=== PATIENT | female | born 1965 | race Asian ===

== ENCOUNTER 2016-10-21 01:26 | Observation (INO) | payer SELFPAY ==
[~2016-10-21] VITALS: Ht 167.6 cm; Wt 91.4 kg
[2016-10-21] MEDS ORDERED: OPTIRAY 320 IV PRN (02:00)
[2016-10-21 02:09] LABS: BASO % 0.2 %; BASO ABS # 0.02 K/uL (0-0.2); COMPLETE YES; EOS % 1.7 %; IG% 0.2 %; LYMPH % 29.9 %; MEAN CELL VOLUME 82.6 fL (80-100); MEAN CORPUSCULAR HEMOGLOBIN 28.8 pg (25-34); MEAN CORPUSCULAR HGB CONC 34.9 g/dl (32-36); MEAN PLATELET VOLUME 11.7 fL (7.4-10.4); MONO % 8.2 %; NEUT % 59.8 %; PLATELET COUNT 266 K/uL (130-400); RED BLOOD COUNT 5.45 M/uL (4.2-5.4); WHITE BLOOD COUNT 9.02 K/uL (4.8-10.8)
[2016-10-21 02:18] LABS: ISTAT CREATININE 0.6 mg/dl (0.6-1.3); ISTAT HEMOGLOBIN 16.3 g/dl (12.0-16.0); ISTAT IONIZED CALCIUM 1.16 mmol/l (1.12-1.32)
[2016-10-21 02:30] LABS: ALT/SGPT 25 U/L (12-78); AST/SGOT 9 U/L (15-37); BLOOD UREA NITROGEN 9 mg/dl (7-18); BUN/CREATININE RATIO 13.7 (10-20); CALCIUM 8.8 mg/dl (8.5-10.1); CARBON DIOXIDE 29 mmol/L (21-32); CHLORIDE 106 mmol/L (98-107); CREATININE 0.67 mg/dl (0.60-1.20); GLUCOSE 106 mg/dl (70-99); POTASSIUM 3.6 mmol/L (3.5-5.1); SODIUM 144 mmol/L (136-145)
[2016-10-21 02:34] LABS: ALKALINE PHOSPHATASE 123 U/L (45-117)
[2016-10-21] MEDS ORDERED: CALC200T PO (02:48)
[2016-10-21] MEDS ORDERED: MULT-506 PO (02:48)
[2016-10-21] MEDS ORDERED: ALBUT/IPRATROP 3MG/0.5MG NEB 3 ML VIAL INH STA ×3 (02:59→04:30)
[2016-10-21] MEDS ORDERED: METHYLPREDNISOLONE 125 MG VIAL IV STA (02:59)
[2016-10-21] MEDS: ALBUTEROL HFA 8 GM INHALER INH STA ×2 (03:34→03:50)
--- NOTE | 2016-10-21 05:35 | EMERGENCY ROOM VISIT NOTE ---
History First contact with patient: 01:37 Chief Complaint: SHORTNESS OF BREATH Stated Complaint: SHORTNESS OF BREATH,INDIGESTION History of Present Illness The patient is a 51 year old female who presents to the Emergency Room with complaints of extreme shortness of breath for the past 3 hours of sudden onset that is worse than any type of activity and nothing makes it better. Patient flew from [place] 2 weeks ago. Patient states she's healthy with no active medical problems she does not smoke. No leg pain or swelling. No family history of blood clots or heart disease. No prior blood clots or heart disease per herself. Patient states she had a cold last week that resolved over week ago. Patient denies chest pain, abdominal pain, vomiting, diarrhea, fever, chills. Review of Systems See HPI for pertinent positives & negatives. A total of 10 systems reviewed and were otherwise negative. Past Medical/Surgical History C section Social History Smoking Status: Never Smoker Smokeless Tobacco Use: No Alcohol Use: none Drug Use: none Housing Status: lives with family Current/Historical Medications Scheduled Calcium Carbonate-Vitamin D (Oscal 500/200 D-3), 1 TAB PO DAILY Multivitamin (Multivitamin), 1 TAB PO DAILY Allergies Coded Allergies: No Known Allergies (Unverified , 10/21/16) Physical Exam Vital Signs Date Time Temp Pulse Resp B/P Pulse Ox O2 Delivery O2 Flow Rate FiO2 10/21/16 05:27 103 20 92/60 92 Nasal Cannula 2.0 10/21/16 05:12 86 Room Air 10/21/16 03:53 85 20 123/71 92 Room Air 10/21/16 03:11 94 Nasal Cannula 3.0 10/21/16 03:10 85 Room Air 10/21/16 02:36 93 29 148/97 94 Nasal Cannula 3.0 10/21/16 02:05 88 Room Air 10/21/16 02:05 93 Nasal Cannula 3.0 10/21/16 02:05 93 Nasal Cannula 3.0 10/21/16 02:01 89 10/21/16 01:32 37.3 91 20 150/97 90 Room Air Physical Exam VITALS: Vitals are noted on the nurse's note and reviewed by myself. Vital signs pulse ox 90% GENERAL: Pleasant female appearing short of breath unable to speak in full sentences well-developed well-nourished. SKIN: The skin was without rashes, erythema, edema, or bruising. There is no tenting of the skin. Capillary reflex less than 2 seconds. HEAD: Normocephalic atraumatic. EARS: External auditory canals clear, tympanic membranes pearly isaac without erythema or effusion bilaterally. EYES: Pupils equal round and reactive to light and accommodation. Conjunctivae without injection, sclerae without icterus. Extraocular movements intact. NOSE: Patent, turbinates without inflammation or discharge. No sinus tenderness. MOUTH: Mucous membranes moist. Pharynx without erythema or exudate. Uvula midline. Airway patent. Tongue does not deviate. NECK: Supple without nuchal rigidity. No lymphadenopathy. No thyromegaly. Cervical spine is nontender. No JVD. HEART: Regular rate and rhythm without murmurs gallops or rubs. LUNGS: Diminished breath sounds with mild end expiratory wheezes, without rales or rhonchi. No dullness to percussion. No retractions or accessory muscle use. ABDOMEN: Positive bowel sounds x 4. Normal tympanic percussion. Soft, nontender, without masses or organomegaly. Zambrano sign negative. No guarding or rebound tenderness. MUSCULOSKELETAL: No muscle atrophy, erythema noted. Minimal pedal edema bilaterally, negative Homans sign NEURO: Patient was alert and oriented to person place and time. Normal sensation to light and sharp touch. No focal neurological deficits. Medical Decision & Procedures Laboratory Results 10/21/16 02:00 Red Blood Count 5.45, Mean Corpuscular Volume 82.6, Mean Corpuscular Hemoglobin 28.8, Mean Corpuscular Hemoglobin Concent 34.9, Mean Platelet Volume 11.7, Neutrophils (%) (Auto) 59.8, Lymphocytes (%) (Auto) 29.9, Monocytes (%) (Auto) 8.2, Eosinophils (%) (Auto) 1.7, Basophils (%) (Auto) 0.2, Neutrophils # (Auto) 5.39, Lymphocytes # (Auto) 2.70, Monocytes # (Auto) 0.74, Eosinophils # (Auto) 0.15, Basophils # (Auto) 0.02 10/21/16 02:00 Test 10/21/16 02:00 10/21/16 02:03 White Blood Count 9.02 K/uL (4.8-10.8) Red Blood Count 5.45 M/uL (4.2-5.4) Hemoglobin 15.7 g/dL (12.0-16.0) Hematocrit 45.0 % (37-47) Mean Corpuscular Volume 82.6 fL (80-100) Mean Corpuscular Hemoglobin 28.8 pg (25-34) Mean Corpuscular Hemoglobin Concent 34.9 g/dl (32-36) Platelet Count 266 K/uL (130-400) Mean Platelet Volume 11.7 fL (7.4-10.4) Neutrophils (%) (Auto) 59.8 % Lymphocytes (%) (Auto) 29.9 % Monocytes (%) (Auto) 8.2 % Eosinophils (%) (Auto) 1.7 % Basophils (%) (Auto) 0.2 % Neutrophils # (Auto) 5.39 K/uL (1.4-6.5) Lymphocytes # (Auto) 2.70 K/uL (1.2-3.4) Monocytes # (Auto) 0.74 K/uL (0.11-0.59) Eosinophils # (Auto) 0.15 K/uL (0-0.5) Basophils # (Auto) 0.02 K/uL (0-0.2) RDW Standard Deviation 40.4 fL (36.4-46.3) RDW Coefficient of Variation 13.4 % (11.5-14.5) Immature Granulocyte % (Auto) 0.2 % Immature Granulocyte # (Auto) 0.02 K/uL (0.00-0.02) Est Creatinine Clear Calc Drug Dose 110.6 ml/min Estimated GFR () 116.3 Estimated GFR (Non- 100.4 BUN/Creatinine Ratio 13.7 (10-20) Calcium Level 8.8 mg/dl (8.5-10.1) Total Bilirubin 1.0 mg/dl (0.2-1) Direct Bilirubin 0.2 mg/dl (0-0.2) Aspartate Amino Transf (AST/SGOT) 9 U/L (15-37) Alanine Aminotransferase (ALT/SGPT) 25 U/L (12-78) Alkaline Phosphatase 123 U/L (45-117) Troponin I < 0.015 ng/ml (0-0.045) Total Protein 8.1 gm/dl (6.4-8.2) Albumin 4.1 gm/dl (3.4-5.0) Bedside Hemoglobin 16.3 g/dl (12.0-16.0) Bedside Hematocrit 48 % (37-47) Bedside Sodium 143 mEq/L (135-144) Bedside Potassium 3.6 mEq/L (3.3-5.0) Bedside Chloride 103 mEq/L (101-112) Bedside Total CO2 27 mEq/l (24-31) Anion Gap 18.0 mmol/L (16-25) Bedside Blood Urea Nitrogen 9 mg/dl (7-18) Bedside Creatinine 0.6 mg/dl (0.6-1.3) Bedside Glucose (other) 110 mg/dl (70-99) Bedside Ionized Calcium (Jasmyn) 1.16 mmol/l (1.12-1.32) Medications Administered Medications (Trade) Dose Ordered Sig/Lisandro Route Start Time Stop Time Status Last Admin Dose Admin Albuterol/ Ipratropium (Duoneb) 3 ml NOW STAT INH 10/21/16 02:59 10/21/16 03:00 DC 10/21/16 03:04 3 ML Methylprednisolone Sodium Succinate (Solu-Medrol IV) 125 mg NOW STAT IV 10/21/16 02:59 10/21/16 03:00 DC 10/21/16 03:04 125 MG Albuterol/ Ipratropium (Duoneb) 3 ml NOW STAT INH 10/21/16 03:34 10/21/16 03:36 DC 10/21/16 03:49 3 ML Albuterol/ Ipratropium (Duoneb) 3 ml NOW STAT INH 10/21/16 04:30 10/21/16 04:32 DC 10/21/16 04:39 3 ML ED Course Prior records/ancillary studies reviewed. Triage Nursing notes reviewed. Additional history obtained from the family. The patient's history was concerning for respiratory difficulties. Differential diagnosis: Etiologies such as infections, reactive airway disease, pneumonia, pneumothorax , COPD, CHF, cardiac ischemia, pulmonary embolism, musculoskeletal, gastrointestinal, as well as others were entertained. Physical examination: As above. ER treatment provided: Solu-Medrol, nebulizer On reassessment the patient felt better. Diagnostic interpretation by me: The electrocardiogram was negative for acute ischemic or pathologic change. Normal sinus, normal intervals, no acute ST-T wave changes. Impression normal sinus rhythm interpreted by myself The labs revealed negative troponin. No worrisome electrolyte abnormality Imaging studies: Chest x-ray with no acute consolidation or pneumothorax or free air per my interpretation CTA CHEST: No evidence of pulmonary embolism or aortic dissection. Nonspecific mild patchy groundglass densities, query atelectasis. Minimal peribronchial thickening. Tiny pulmonary nodules (for example in the right lower lobe image 3-67). No pneumothorax or pleural effusion. Radiologist: Latricia Brito M.D. Consultation: A consultation was placed with Dr. Momin hospitalist. The case was discussed and diagnostics were reviewed. The patient was evaluated in the ER for further treatment. This appears to be consistent with bronchitis with reactive airway with hypoxemia. patient was reassessed multiple times. She is placed on oxygen. I-STAT was obtained and patient was sent for CTA for possible PE. She was started on a nebulizer and steroids. She had some improvement. She was observed for several hours in the ER. Her O2 sats kept on dropping to the mid 80s. She will be evaluated by medicine for possible admission. By the evaluation outlined above emergent etiologies such as CHF, cardiac ischemia, pulmonary embolism, pneumonia, pneumothorax, musculoskeletal, serious bacterial infections, as well as others were deemed relatively unlikely. The pt informed about the findings as listed above. All questions were answered and pleased with the treatment. Case reviewed with my attending Medical Decision As above Impression Primary Impression: Acute bronchitis Additional Impression: Hypoxemia Departure Information Dispostion Being Evaluated By Hospitalist Condition FAIR Referrals No Doctor, Assigned (PCP) Patient Instructions My [facility] Additional Instructions Problem Qualifiers Primary Impression: Acute bronchitis Bronchitis organism: unspecified organism Qualified Codes: J20.9 - Acute bronchitis, unspecified
--- NOTE | 2016-10-21 05:51 | History and Physical ---
History & Physical Date & Time of Service: Oct 21, 2016 at 05:31 Chief Complaint: Shortness Of Breath,Indigestion Primary Care Physician: No Doctor, Assigned History of Present Illness Source: patient 51 year old otherwise healthy female with shortness of breath for 2 hours before presentation. 2 weeks ago had flu like symptoms with body aches, productive cough and fever. She took Tylenol 3-4 times/day, Advil as required, Cefogem (3rd generation cephalosporin, 5 day course that she brought over from [place]) and Combiflam (acetaminophen + ibuprofen). She seemed to be recovering after 1 week however her productive cough continued. Around 9:30pm last night she had sudden onset shortness of breath worse with lying down and on exertion. She denies any chest pain but did have indigestion pain and burping. For the excessive burping she took zantac and peptobismol with helped but her shortness of breath and wheezing continued so she presented to the ER. At baseline she has no medical issues. No known exposure to TB. Usually can walk a mile without any dizziness or shortness of breath. In the ER she was treat with a DuoNeb and methylprednisone helped with the wheezing and shortness of breath. Due to ongoing hypoxia she was referred to the hospitalist group for evaluation for admission. Past Medical/Surgical History None Social History Smoking Status: Never Smoker Smokeless Tobacco Use: No Alcohol Use: none Housing status: lives with family Allergies Coded Allergies: No Known Allergies (Unverified , 10/21/16) Home Medications Scheduled Calcium Carbonate-Vitamin D (Oscal 500/200 D-3), 1 TAB PO DAILY Multivitamin (Multivitamin), 1 TAB PO DAILY Review of Systems Constitutional: No chills, No fever Eyes: No worsening of vision ENT: No hearing loss Respiratory: No cough, No sputum, No wheezing Abdomen: No constipation, No diarrhea, No nausea, No pain, No vomiting Musculoskeletal: No joint pain, No muscle pain Integumentary: No itch, No rash Physical Exam Vital Signs Date Time Temp Pulse Resp B/P Pulse Ox O2 Delivery O2 Flow Rate FiO2 10/21/16 05:27 103 20 92/60 92 Nasal Cannula 2.0 10/21/16 05:12 86 Room Air 10/21/16 03:53 85 20 123/71 92 Room Air 10/21/16 03:11 94 Nasal Cannula 3.0 10/21/16 03:10 85 Room Air 10/21/16 02:36 93 29 148/97 94 Nasal Cannula 3.0 10/21/16 02:05 88 Room Air 10/21/16 02:05 93 Nasal Cannula 3.0 10/21/16 02:05 93 Nasal Cannula 3.0 10/21/16 02:01 89 10/21/16 01:32 37.3 91 20 150/97 90 Room Air General Appearance: WD/WN, no apparent distress Head: normocephalic, atraumatic Eyes: normal inspection (pupils equal), EOMI Neck: supple, no JVD Respiratory/Chest: chest non-tender, lungs clear, normal breath sounds, no respiratory distress, no accessory muscle use Cardiovascular: regular rate, rhythm, normal peripheral pulses, + systolic murmur (apical) Abdomen/GI: normal bowel sounds, soft, + tenderness (epigastric tenderness without rebound or guarding) Extremities/Musculoskelatal: no calf tenderness, normal capillary refill, no pedal edema Neurologic/Psych: corrections specialist II-XII nml as tested, no motor/sensory deficits, alert, normal mood/affect, oriented x 3 Skin: normal color, warm/dry, no rash Diagnostics Laboratory Results Results Past 24 Hours Test 10/21/16 02:00 10/21/16 02:03 Range/Units White Blood Count 9.02 4.8-10.8 K/uL Red Blood Count 5.45 4.2-5.4 M/uL Hemoglobin 15.7 12.0-16.0 g/dL Hematocrit 45.0 37-47 % Mean Corpuscular Volume 82.6 80-100 fL Mean Corpuscular Hemoglobin 28.8 25-34 pg Mean Corpuscular Hemoglobin Concent 34.9 32-36 g/dl Platelet Count 266 130-400 K/uL Mean Platelet Volume 11.7 7.4-10.4 fL Neutrophils (%) (Auto) 59.8 % Lymphocytes (%) (Auto) 29.9 % Monocytes (%) (Auto) 8.2 % Eosinophils (%) (Auto) 1.7 % Basophils (%) (Auto) 0.2 % Neutrophils # (Auto) 5.39 1.4-6.5 K/uL Lymphocytes # (Auto) 2.70 1.2-3.4 K/uL Monocytes # (Auto) 0.74 0.11-0.59 K/uL Eosinophils # (Auto) 0.15 0-0.5 K/uL Basophils # (Auto) 0.02 0-0.2 K/uL RDW Standard Deviation 40.4 36.4-46.3 fL RDW Coefficient of Variation 13.4 11.5-14.5 % Immature Granulocyte % (Auto) 0.2 % Immature Granulocyte # (Auto) 0.02 0.00-0.02 K/uL Sodium Level 144 136-145 mmol/L Potassium Level 3.6 3.5-5.1 mmol/L Chloride Level 106 98-107 mmol/L Carbon Dioxide Level 29 21-32 mmol/L Anion Gap 9.0 18.0 16-25 mmol/L Blood Urea Nitrogen 9 7-18 mg/dl Creatinine 0.67 0.60-1.20 mg/dl Est Creatinine Clear Calc Drug Dose 110.6 ml/min Estimated GFR () 116.3 Estimated GFR (Non- 100.4 BUN/Creatinine Ratio 13.7 10-20 Random Glucose 106 70-99 mg/dl Calcium Level 8.8 8.5-10.1 mg/dl Total Bilirubin 1.0 0.2-1 mg/dl Direct Bilirubin 0.2 0-0.2 mg/dl Aspartate Amino Transf (AST/SGOT) 9 15-37 U/L Alanine Aminotransferase (ALT/SGPT) 25 12-78 U/L Alkaline Phosphatase 123 45-117 U/L Troponin I < 0.015 0-0.045 ng/ml Total Protein 8.1 6.4-8.2 gm/dl Albumin 4.1 3.4-5.0 gm/dl Bedside Hemoglobin 16.3 12.0-16.0 g/dl Bedside Hematocrit 48 37-47 % Bedside Sodium 143 135-144 mEq/L Bedside Potassium 3.6 3.3-5.0 mEq/L Bedside Chloride 103 101-112 mEq/L Bedside Total CO2 27 24-31 mEq/l Bedside Blood Urea Nitrogen 9 7-18 mg/dl Bedside Creatinine 0.6 0.6-1.3 mg/dl Bedside Glucose (other) 110 70-99 mg/dl Bedside Ionized Calcium (Jasmyn) 1.16 1.12-1.32 mmol/l CXR normal Normal EKG Impression Assessment and Plan 51 year old female from [place] presents with shortness of breath and wheezing. CTPA - negative for PE, bronchial wall thickening and CXR negative for infection. Pneumonia / Acute bronchitis - given hypoxia will treat as pneumonia despite clear CXR and auscultation. Mild patchy ground glass apacities on CT may represent pneumonia - Augmentin BID - flutter valve, incentive spirometry - Duonebs, Prednisone - repeat 12 hour troponin at 9am to completely rule out PE Systolic murmur - unlikely to be cause of current complaint given no pulmonary edema on CXR. However suggest outpatient follow up VTE Prophylaxis - given young age, mobile and short duration of stay will hold off chemical prophylaxis currently Code - Full Disposition - observe in med/surg. Expect she can go home later today or tomorrow Level of Care Med/Surg Resuscitation Status FULL RESUSCITATION VTE Prophylaxis VTE Risk Assessment Done? Y/N: Yes Risk Level: Very Low Given or contraindicated: Keyla Becker SCD's Resident Tracking Resident Involvement: Resident Care Provided Care Provided: Adult Hospital Medicine
[2016-10-21] MEDS ORDERED: AMOXICILLIN/CLAVULANATE TAB 875 MG TAB PO ONE ×2 (06:04→06:29)
[2016-10-21] MEDS ORDERED: SODIUM CHLORIDE 0.9% 1000ML 1,000 ML IV STA (06:15)
[2016-10-21] MEDS ORDERED: ACETAMINOPHEN 325 MG TAB PO PRN (06:15)
[2016-10-21] MEDS ORDERED: PANTOprazole SOD 40 MG TAB PO STA (06:21)
[2016-10-21] MEDS ORDERED: PANTOprazole SOD 40 MG TAB ONE (06:29)
--- NOTE | 2016-10-21 06:36 | DIAGNOSTIC IMAGING REPORT ---
CHEST ONE VIEW PORTABLE CLINICAL HISTORY: Atypical chest pain and shortness of breath COMPARISON STUDY: No previous studies for comparison. FINDINGS: The cardiac and mediastinal contours are normal. There is no evidence of focal pulmonary consolidation. There is no evidence of failure. No pleural effusions are visualized.[ IMPRESSION: No active disease in the chest. Electronically signed by: Kelvin Emerson M.D. 10/21/2016 6:34 AM Dictated Date/Time: 10/21/2016 6:34 AM
[2016-10-21 07:20] VITALS: BP 129/76; PULSE 92; TEMP 36.6; O2SAT 96
--- NOTE | 2016-10-21 07:38 | DIAGNOSTIC IMAGING REPORT ---
CHEST CTA for PULMONARY ARTERIES CT DOSE: 505.59 mGy.cm HISTORY: Short of breath. TECHNIQUE: Multiaxial CT images of the chest were performed following the intravenous administration of contrast to evaluate the pulmonary arteries. Maximal intensity projection images were also obtained. COMPARISON STUDY: None. FINDINGS: There is a normal caliber thoracic aorta with no evidence for dissection. There is no evidence for pulmonary embolus. No pleural effusions. No pneumothorax. The liver and spleen are unremarkable. No mediastinal or hilar lymphadenopathy. Mild central bronchial wall thickening. A 3 mm nodule within the right lower lobe on image 67. A few scattered faint groundglass densities are noted. IMPRESSION: 1. No evidence for pulmonary embolus. 2. A few scattered faint groundglass densities, mild central bronchial wall thickening, and tiny nodular densities. This favors mild infectious change. Electronically signed by: Harley Chung M.D. 10/21/2016 7:36 AM Dictated Date/Time: 10/21/2016 7:30 AM
[2016-10-21] MEDS: ALBUT/IPRATROP 3MG/0.5MG NEB 3 ML VIAL INH SCH (08:00)
[2016-10-21] MEDS: MULTIVITAMIN TAB PO SCH (08:17)
[2016-10-21 09:16] VITALS: BP 129/76; TEMP 36.6; O2SAT 96; Ht 167.6 cm; Wt 91.4 kg
--- NOTE | 2016-10-21 13:43 | Family Medicine Progress Note ---
Progress Note Date of Service Oct 21, 2016. Subjective Pt evaluation today including: conversation w/ patient, physical exam, chart review, lab review Pain: 0/10 PO Intake: WNL Voiding: no voiding problems States that she is generally feeling much better She did have an ambulation test this afternoon and dropped to a saturation of 87% and was visibly short of breath resolved with rest denies any pain Constitutional: No fever Eyes: No worsening of vision ENT: No hearing loss Respiratory: + dyspnea on exertion, No cough, No shortness of breath, No sputum, No wheezing Cardiovascular: No chest pain Abdomen: No constipation, No diarrhea, No nausea, No pain, No vomiting Musculoskeletal: No joint pain, No muscle pain Neurologic: No balance problems, No paralysis, No weakness Psychiatric: No depression symptoms Endo: + fatigue Medications Medications Administered Medications (Trade) Dose Ordered Sig/Lisandro Route Start Time Stop Time Status Last Admin Dose Admin Albuterol/ Ipratropium (Duoneb) 3 ml NOW STAT INH 10/21/16 02:59 10/21/16 03:00 DC 10/21/16 03:04 3 ML Methylprednisolone Sodium Succinate (Solu-Medrol IV) 125 mg NOW STAT IV 10/21/16 02:59 10/21/16 03:00 DC 10/21/16 03:04 125 MG Albuterol/ Ipratropium (Duoneb) 3 ml NOW STAT INH 10/21/16 03:34 10/21/16 03:36 DC 10/21/16 03:49 3 ML Albuterol/ Ipratropium (Duoneb) 3 ml NOW STAT INH 10/21/16 04:30 10/21/16 04:32 DC 10/21/16 04:39 3 ML Multivitamins 1 tab 1 tab DAILY PO 10/21/16 08:00 11/20/16 08:59 10/21/16 08:17 1 TAB Sodium Chloride (Nss 1000ml) 1,000 ml @ 999 mls/hr Q1H1M STAT IV 10/21/16 06:15 10/21/16 07:15 DC 10/21/16 06:47 999 MLS/HR Amoxicillin/ Clavulanate Potassium (Augmentin Tab) 875 mg STK-MED ONCE PO 10/21/16 06:29 10/21/16 06:32 DC 10/21/16 06:46 875 MG Pantoprazole Sodium (Protonix Tab) 40 mg STK-MED ONCE .ROUTE 10/21/16 06:29 10/21/16 06:32 DC 10/21/16 06:46 40 MG Objective Vital Signs Date Time Temp Pulse Resp B/P Pulse Ox O2 Delivery O2 Flow Rate FiO2 10/21/16 09:16 36.6 20 129/76 96 Nasal Cannula 2.0 10/21/16 07:20 36.6 92 18 129/76 96 Room Air 10/21/16 06:28 96 20 124/69 94 Nasal Cannula 2.0 10/21/16 06:20 100 10/21/16 05:27 103 20 92/60 92 Nasal Cannula 2.0 10/21/16 05:12 86 Room Air 10/21/16 03:53 85 20 123/71 92 Room Air 10/21/16 03:11 94 Nasal Cannula 3.0 10/21/16 03:10 85 Room Air 10/21/16 02:36 93 29 148/97 94 Nasal Cannula 3.0 10/21/16 02:05 88 Room Air 10/21/16 02:05 93 Nasal Cannula 3.0 10/21/16 02:05 93 Nasal Cannula 3.0 10/21/16 02:01 89 10/21/16 01:32 37.3 91 20 150/97 90 Room Air Physical Exam General Appearance: WD/WN, no apparent distress Eyes: normal inspection ENT: normal ENT inspection Neck: supple Respiratory/Chest: lungs clear, normal breath sounds, no respiratory distress, no accessory muscle use Cardiovascular: regular rate, rhythm, no murmur Abdomen: normal bowel sounds, non tender, soft Extremities: non-tender, normal inspection, no pedal edema, no calf tenderness Neurologic/Psychiatric: no motor/sensory deficits, alert, normal mood/affect, oriented x 3 Skin: normal color, warm/dry, no rash Lymphatic: no adenopathy Laboratory Results Results Past 24 Hours Test 10/21/16 02:00 10/21/16 02:03 10/21/16 09:57 Range/Units White Blood Count 9.02 4.8-10.8 K/uL Red Blood Count 5.45 4.2-5.4 M/uL Hemoglobin 15.7 12.0-16.0 g/dL Hematocrit 45.0 37-47 % Mean Corpuscular Volume 82.6 80-100 fL Mean Corpuscular Hemoglobin 28.8 25-34 pg Mean Corpuscular Hemoglobin Concent 34.9 32-36 g/dl Platelet Count 266 130-400 K/uL Mean Platelet Volume 11.7 7.4-10.4 fL Neutrophils (%) (Auto) 59.8 % Lymphocytes (%) (Auto) 29.9 % Monocytes (%) (Auto) 8.2 % Eosinophils (%) (Auto) 1.7 % Basophils (%) (Auto) 0.2 % Neutrophils # (Auto) 5.39 1.4-6.5 K/uL Lymphocytes # (Auto) 2.70 1.2-3.4 K/uL Monocytes # (Auto) 0.74 0.11-0.59 K/uL Eosinophils # (Auto) 0.15 0-0.5 K/uL Basophils # (Auto) 0.02 0-0.2 K/uL RDW Standard Deviation 40.4 36.4-46.3 fL RDW Coefficient of Variation 13.4 11.5-14.5 % Immature Granulocyte % (Auto) 0.2 % Immature Granulocyte # (Auto) 0.02 0.00-0.02 K/uL Sodium Level 144 136-145 mmol/L Potassium Level 3.6 3.5-5.1 mmol/L Chloride Level 106 98-107 mmol/L Carbon Dioxide Level 29 21-32 mmol/L Anion Gap 9.0 18.0 16-25 mmol/L Blood Urea Nitrogen 9 7-18 mg/dl Creatinine 0.67 0.60-1.20 mg/dl Est Creatinine Clear Calc Drug Dose 110.6 ml/min Estimated GFR () 116.3 Estimated GFR (Non- 100.4 BUN/Creatinine Ratio 13.7 10-20 Random Glucose 106 70-99 mg/dl Calcium Level 8.8 8.5-10.1 mg/dl Total Bilirubin 1.0 0.2-1 mg/dl Direct Bilirubin 0.2 0-0.2 mg/dl Aspartate Amino Transf (AST/SGOT) 9 15-37 U/L Alanine Aminotransferase (ALT/SGPT) 25 12-78 U/L Alkaline Phosphatase 123 45-117 U/L Troponin I < 0.015 < 0.015 0-0.045 ng/ml Total Protein 8.1 6.4-8.2 gm/dl Albumin 4.1 3.4-5.0 gm/dl Bedside Hemoglobin 16.3 12.0-16.0 g/dl Bedside Hematocrit 48 37-47 % Bedside Sodium 143 135-144 mEq/L Bedside Potassium 3.6 3.3-5.0 mEq/L Bedside Chloride 103 101-112 mEq/L Bedside Total CO2 27 24-31 mEq/l Bedside Blood Urea Nitrogen 9 7-18 mg/dl Bedside Creatinine 0.6 0.6-1.3 mg/dl Bedside Glucose (other) 110 70-99 mg/dl Bedside Ionized Calcium (Jasmyn) 1.16 1.12-1.32 mmol/l Assessment and Plan 51 year old female from [place] presents with shortness of breath and wheezing. CTPA - negative for PE. Showing bronchial wall thickening and tiny nodular densities. Pneumonia - CAP with hypoxia - augmentin changed to cipro 250 mg 2 pills bid- patient has limited insurance and this is available on the [employer] dollar list - flutter valve, incentive spirometry - Duonebs - troponin negative - off NC oxygen at rest but hypoxic with ambulation Systolic murmur - unlikely to be cause of current complaint given no pulmonary edema on CXR. However suggest outpatient follow up VTE Prophylaxis - given young age, mobile and short duration of stay will hold off chemical prophylaxis currently, encouraged to ambulate Code - Full Disposition - observe in med/surg. Expect she can go home tomorrow morning Continued [facility] stay due to: abnormal vital signs, other Discharge planning: uncertain Reviewed: Pt Seen/Exam by Me History 51 y/o F here with shortness of breath/wheezing and hypoxia noted to have diffuse fine ground glass opacity and nodularity Constitutional: denies: fever Respiratory: positive: cough, negative: short of breath Cardiovascular: denies chest pain Gastrointestinal/Abdominal: negative: abdominal pain General Appearance: no apparent distress Respiratory: lungs clear, no respiratory distress Cardiovascular: regular rate, rhythm Gastrointestinal: normal bowel sounds, non tender, soft Neurologic/Psychiatric: alert, oriented x 3 Skin Characteristics: warm/dry Assessment/Plan I have reviewed the medical record and performed a history and physical examination of this patient today. I have discussed the case with Dr. Santos. The above note reflects my findings, conclusions, and recommendations.
[2016-10-21 15:59] VITALS: BP 112/73; PULSE 85; TEMP 36.8; O2SAT 90
[2016-10-21] MEDS ORDERED: AMOXICILLIN/CLAVULANATE TAB 875 MG TAB PO SCH (17:00)
[2016-10-21 20:04] VITALS: PULSE 94; O2SAT 88
[2016-10-21] MEDS: CIPROFLOXACIN 500 MG TAB PO SCH (20:44)
[2016-10-21 23:28] VITALS: BP 109/66; PULSE 85; TEMP 36.6; O2SAT 95
[2016-10-22 07:15] VITALS: PULSE 99; O2SAT 95
[2016-10-22] MEDS: ALBUT/IPRATROP 3MG/0.5MG NEB 3 ML VIAL INH SCH ×2 (07:15→11:01)
[2016-10-22 07:38] VITALS: BP 127/76; PULSE 83; TEMP 36.7; O2SAT 93
[2016-10-22] MEDS: MULTIVITAMIN TAB PO SCH (07:43)
[2016-10-22] MEDS: CIPROFLOXACIN 500 MG TAB PO SCH (07:43)
[2016-10-22 07:52] VITALS: O2SAT 93
[2016-10-22] MEDS ORDERED: PANTOprazole SOD 40 MG TAB PO SCH (08:00)
[2016-10-22] MEDS ORDERED: CIPR1TAB11 PO (08:59)
--- NOTE | 2016-10-22 09:02 | Discharge Instructions ---
Discharge Instructions Date of Service Oct 22, 2016. Admission Reason for Admission: Acute Bronchitis, Hypoxemia Discharge Discharge Diagnosis / Problem: pneumonia Discharge Goals Goal(s): Diagnostic testing, Therapeutic intervention Activity Recommendations Activity Limitations: resume your previous activity Exercise/Sports Limitations: none Shower/Bathe: no limitations . Instructions / Follow-Up Instructions / Follow-Up You were admitted to the hospital for treatment of your shortness of breath and low oxygen level because of a lung infection. 1. Antibiotic : Cipro 250 mg - 2 pills x2/ day for 9 days - go to [facility]- tell the pharmacy you have NO insurance- this medication is on the four dollar list 2. Please return if you develop a fever, chest pain, worsening of your symptoms Current Hospital Diet Patient's current hospital diet: Regular Diet Discharge Diet Recommended Diet: Regular Diet Pending Studies Studies pending at discharge: no Medical Emergencies . Who to Call and When: Medical Emergencies: If at any time you feel your situation is an emergency, please call 911 immediately. . Non-Emergent Contact Non-Emergency issues call your: Primary Care Provider Call Non-Emergent contact if: you have a fever, your pain is worsening . . "Provider Documentation" section prepared by Keren Santos. VTE Core Measure Inpt VTE Proph given/why not?: Keyla Becker, SCD's
--- NOTE | 2016-10-22 09:07 | Discharge Summary ---
Discharge Summary Date of Service Oct 22, 2016. (Keren Santos MD) Discharge Summary Admission Date: Oct 21, 2016 at 06:12 Discharge Date: Oct 22, 2016 Discharge Disposition: Home Principal Diagnosis: CAP (Keren Santos MD) Medication Reconciliation New Medications: Ciprofloxacin Tab (Cipro) 250 Mg Tab 2 TAB PO BID for 9 Days, #18 TAB Continued Medications: Calcium Carbonate-Vitamin D (Oscal 500/200 D-3) 1 Tab Tab 1 TAB PO DAILY Multivitamin (Multivitamin) Tab 1 TAB PO DAILY, TAB Discharge Exam Symptoms have completely resolved, was able to ambulate without desat concerns and questions discussed and patient agreeable to d/c and understand plan Review of Systems: Constitutional: No fever Eyes: No worsening of vision ENT: No hearing loss Respiratory: + cough, No dyspnea at rest, No dyspnea on exertion, No shortness of breath, No sputum, No wheezing Cardiovascular: No chest pain Abdomen: No constipation, No diarrhea, No nausea, No pain, No vomiting Musculoskeletal: No joint pain, No muscle pain Genitourinary - Female: No dysuria, No hematuria Neurologic: No balance problems, No memory loss, No numbness/tingling, No paralysis, No weakness Endocrine: No fatigue Integumentary: No rash Physical Exam: General Appearance: WD/WN, no apparent distress Eyes: normal inspection ENT: normal ENT inspection Neck: supple Respiratory/Chest: lungs clear, normal breath sounds, no respiratory distress, no accessory muscle use Cardiovascular: regular rate, rhythm, no murmur Abdomen / GI: normal bowel sounds, non tender, soft Extremities: normal inspection, no calf tenderness, no pedal edema Neurologic/Psychiatric: alert, normal mood/affect, oriented x 3 Skin: normal color, warm/dry, no rash Lymphatic: no adenopathy (Keren Santos MD) Review of Systems: Constitutional: No fever Respiratory: + cough (minimal), No shortness of breath Cardiovascular: No chest pain Abdomen: No pain Physical Exam: General Appearance: no apparent distress Respiratory/Chest: lungs clear, no respiratory distress Cardiovascular: regular rate, rhythm Abdomen / GI: normal bowel sounds, non tender, soft Neurologic/Psychiatric: alert, oriented x 3 Skin: warm/dry (Lilly Santos M.D.) Hospital Course 51 year old female from [place] presented with shortness of breath and wheezing. CTPA - negative for PE. Showing bronchial wall thickening and tiny nodular densities. Concern for CAP so patient was initially treated with zosyn and changed to Cipro because of insurance and bacterial coverage. Pneumonia - CAP with hypoxia - augmentin changed to cipro 250 mg 2 pills bid- patient has limited insurance and this is available on the [employer] list - flutter valve, incentive spirometry - Duonebs - troponin negative Systolic murmur - unlikely to be cause of current complaint given no pulmonary edema on CXR. However suggest outpatient follow up Total Time Spent: Less than 30 minutes This includes examination of the patient, discharge planning, medication reconciliation, and communication with other providers. (Keren Santos MD) I have reviewed the medical record and performed a history and physical examination of this patient today. I have discussed the case with Dr. Santos. The above note reflects my findings, conclusions, and recommendations. Total Time Spent: Greater than 30 minutes (Lilly Santos M.D.) Discharge Instructions Please refer to the electronic Patient Visit Report (Discharge Instructions) for additional information. (Keren Santos MD)
[2016-10-22 10:16] VITALS: BP 127/76; PULSE 83; TEMP 36.7; O2SAT 93
[2016-10-22 11:01] VITALS: PULSE 81; O2SAT 95
== END 2016-10-22 11:35 | disposition home or self-care (01) ==
LOC: ENRESERVDT → ENRESERVTM → C.EDB 01:29 → C.4E 06:12
PROVIDERS: ADMIT Hospitalist; ATTEND Family Medicine
DX: J18.9 Pneumonia, unspecified organism (principal); R09.02 Hypoxemia; R01.1 Cardiac murmur, unspecified